=== PATIENT | male | born 1995 | race African-American/Black ===

== ENCOUNTER 2018-03-02 14:36 | Emergency (ER) | payer OTHER ==
[2018-03-02 16:09] LABS: HAAIG REFLEX REFLEX FILED
[2018-03-02 17:10] LABS: HEPATITIS B SURFACE ANTIGEN NEGATIVE (NEGATIVE)
[2018-03-02 17:27] LABS: HEPATITIS B CORE ANTIBODY NEGATIVE (NEGATIVE); HEPATITIS C VIRAL ANTIBODY NEGATIVE (NEGATIVE); HIV 1&2 ANTIBODY NEGATIVE (NEGATIVE)
== END 2018-03-02 16:28 | disposition home or self-care (01) ==
LOC: FTE 14:36
DX: B08.1 Molluscum contagiosum (principal)
CPT/HCPCS: 86703; 86704; 86709; 86803; 87340; 99283

== ENCOUNTER 2018-08-05 18:36 | Emergency (ER) | payer OTHER | END 2018-08-05 19:40 | disposition home or self-care (01) | LOC: FTE 18:36 | DX: M25.571 Pain in right ankle and joints of right foot (principal); F17.210 Nicotine dependence, cigarettes, uncomplicated; J45.909 Unspecified asthma, uncomplicated | CPT/HCPCS: 99283; Z7502 ==

== ENCOUNTER 2019-03-04 18:10 | Emergency (ER) | payer OTHER ==
[2019-03-04 20:13] LABS: TROPONIN-I < 0.012 ng/ml (0.000-0.120)
== END 2019-03-04 20:38 | disposition home or self-care (01) ==
LOC: FTE 18:10
DX: F41.1 Generalized anxiety disorder (principal); Z87.891 Personal history of nicotine dependence
CPT/HCPCS: 84484; 93005; 99284-25